=== PATIENT | male | born 1955 | race Two or more races ===

== ENCOUNTER 2024-09-19 09:37 | Inpatient (IN) | payer MEDICARE, MEDICAID ==
[~2024-09-19] VITALS: Ht 152.4 cm; Wt 96.0 kg
--- NOTE | 2024-09-19 10:33 | ED.PDOC ---
SOB-HPI HPI Comments HPI: Poor Historian. 69 y.o male presents to the ED for a chief complaint of SOB associated with nausea, chills, cough and phlegm that presented 10 days ago. Patient was seen by urgent care recently, had an X ray done which resulted clear and was prescribed doxycycline, prednisone and Benzonatate. Patient finished medication yesterday but has persistent and worsening SOB, cough and phlegm. Patient reports chills have subsided. Patient mentions and son were sick with similar symptoms this past week but have recovered. Patient has been using Ibuprofen but none within the past 24 hours. He denies any chest pain, fever, nausea, vomiting. Vitals BP: 132/28 HR: 91 Temp:98.3 F SPO2: 95% room air RR:15 Past medical history: DM, HTN Past surgical history: No allergies reported REVIEW OF SYSTEMS: CONSTITUTIONAL: Denies acute: fever, diaphoresis, chills, generalized weakness. HEAD: Denies acute: headache, photophobia Eyes: Denies acute: Double vision, vision loss, eye pain, eye discharge. EARS: Denies acute: tinnitus, hearing loss, ear discharge, ear pain, THROAT: Denies acute: sore throat, swelling, difficulty swallowing , pain with swallowing, change in voice. NECK: Denies acute: neck pain, neck swelling, stiff neck. HEART: Denies acute : chest pain, palpitations, LUNGS: Denies acute: wheezing, hemoptysis ABDOMEN: Denies acute: abdominal pain, Nausea, Vomiting, diarrhea, melena , hematemesis, hematochezia SKIN: Denies acute: rash, redness, lesions, itchiness. EXTREMITIES: Denies acute: calf pain, numbness, tingling, weakness, denies pain in extremity. Denies acute: Low back pain. Neuro: Denies acute: focal neurological deficit, motor or sensory focal neurological deficit, tremors, seizure like activity, confusion, dizziness, change in mental status, loss of bowel or bladder function, cauda equina like symptoms. : Denies acute: dysuria, hematuria, flank pain, increase in urinary frequency. PSYCH: Denies acute: hallucination, suicidal ideation, homicidal ideation. PHYSICAL EXAM: General: no acute distress, awake and alert. Head: normocephalic, atraumatic. Neck: supple, trachea is midline, no swelling. Throat: Normal phonation. Eyes:, no erythema, no purulent discharge, no proptosis, no icterus. Heart: regular rate, regular rhythm, no significant murmur appreciated. Lungs: no apparent respiratory distress, Able to speak in full sentences. No wheezing, no rhonchi, no crackles. No stridors Clear to auscultation bilaterally. Abdomen: non tender to palpation, non distended, soft, no guarding, no rebound, + bowel sounds. Neuro: Awake, Alert, oriented to name, self, situation, follows commands GCS=15. Speech is normal. Skin: no petechia, no purpura, no cyanosis, non-pale, not jaundice. Lower extremities: --no - Pitting edema no deformity, no focal swelling, no calf TTP. Makes eye contact. moves all four extremities. Face: no apparent facial droop. Ambulating in the ED independently. ED COURSE: Chief Complaint: Flu like Time Seen by MD: 10:21 Reviewed notes: Nurses Notes, Allergies Information Source: Patient Mode of Arrival: Ambulatory Severity: Moderate Past Medical History PAST MEDICAL HISTORY: DM, HTN Family History Family History: Reviewed,noncontributory to illness Social History Smoker: Quit Greater Than 1 Year Alcohol: Denies ETOH Use Drugs: Denies Drug Use Lives In: Home Was a procedure done? Was a procedure done?: No Differential Dx Differential Diagnosis: Bronchitis, Pneumonia, Respiratory Distress, URI, Other (DDx include ACS, unstable angina, anxiety, PE, pneumothroax, neoplasm, cardiac ischemia, COPD, asthma, CHF, pleural effusion, tobacco abuse, pneumonia, hypoxia, hypercapnia, anemia., infection/sepsis., pulmonary edema. Asthma, Cardiac tamponade, infection.) X-Ray, Labs, Meds, VS Vital Signs Date Time Temp Pulse Resp B/P (MAP) Pulse Ox O2 Delivery O2 Flow Rate FiO2 09/19/24 18:42 69 16 124/82 (96) 94 09/19/24 16:29 22 96 Room Air* 0 21 09/19/24 16:23 97.4 84 16 121/79 (93) 95 97.4 09/19/24 14:18 76 18 117/73 (88) 94 09/19/24 12:56 80 22 139/80 (99) 92 09/19/24 10:38 82 22 92 Room Air* 0 21 09/19/24 10:38 98.6 82 22 131/58 (82) 92 98.6 09/19/24 10:01 15 95 Room Air* 0 21 09/19/24 10:01 98.3 91 15 132/78 (96) 95 Lab Test 09/19/24 17:30 09/19/24 14:07 09/19/24 11:53 09/19/24 11:29 Range/Units POC Glucose 182 H 70-106 mg/dl Troponin I High Sensitivity 6 7 </=54 ng/L Blood Gas Specimen Type Arterial Blood Gas Sample Site Right radial Blood Gas Patient Temperature 37.0 Arterial Blood Date Drawn [id number] Arterial Blood pH 7.429 7.350-7.450 Arterial Blood Partial Pressure CO2 35.8 35.0-48.0 mmHg Arterial Blood Partial Pressure O2 59.9 L 83.0-108.0 mmHg Arterial Blood HCO3 23.2 21.0-28.0 mmol/L Arterial Blood Oxygen Saturation 90.5 L 94.0-98.0 % Arterial Blood Base Excess -0.5 -2.0-3.0 mmol/L Arterial Blood Oxyhemoglobin 89.2 L 94.0-98.0 % Arterial Blood Carboxyhemoglobin 0.8 0.5-1.5 % Arterial Blood Methemoglobin 0.6 0.0-1.5 % Rito Test Yes Blood Gas Total Hemoglobin 17.90 H 13.5-17.5 g/dL Blood Gas Liter Flow 0.00 Blood Gas Modality Room air FiO2 % 21.0 Test 09/19/24 10:33 09/19/24 10:28 Range/Units Influenza Type A Antigen Negative Negative Influenza Type B Antigen Negative Negative SARS-CoV-2 Antigen (Rapid) Negative NEGATIVE White Blood Count 9.5 4.4-10.8 10^3/uL Red Blood Count 5.53 4.5-5.90 10^6/uL Hemoglobin 17.5 13.5-17.5 g/dL Hematocrit 51.0 41.0-53.0 % Mean Corpuscular Volume 92.1 80.0-100.0 fL Mean Corpuscular Hemoglobin 31.6 28.0-32.0 pg Mean Corpuscular Hemoglobin Concent 34.3 32.0-36.0 g/dL Red Cell Distribution Width 13.3 11.8-14.3 % Platelet Count 278 140-450 10^3/uL Mean Platelet Volume 8.3 6.9-10.8 fL Neutrophils (%) (Auto) 37.0-80.0 % Lymphocytes (%) (Auto) 10.0-50.0 % Monocytes (%) (Auto) 0.0-12.0 % Basophils (%) (Auto) 0.0-2.0 % Neutrophils # (Auto) 1.6-8.6 10 ^3/uL Lymphocytes # (Auto) 0.4-5.4 10 ^3/uL Monocytes # (Auto) 0-1.3 10 ^3/uL Differential Total Cells Counted 100.0 100 Neutrophils % (Manual) 62 37.0-80.0 Band Neutrophils % (Manual) 4 Lymphocytes % (Manual) 22 10.0-50.0 Monocytes % (Manual) 7 0-12 Eosinophils % (Manual) 3 0-7 Basophils % (Manual) 0 0.0-2.0 Metamyelocytes % (manual) 2 Myelocytes % (Manual) 0 Promyelocytes % (Manual) 0 Blast Cells % (Manual) 0 Reactive Lymphocytes 0 Platelet Estimate Adequate Sodium Level 136 136-145 mmol/L Potassium Level 4.3 3.5-5.1 mmol/L Chloride Level 101 98-107 mmol/L Carbon Dioxide Level 27 20-31 mmol/L Anion Gap 8 5-15 Blood Urea Nitrogen 14 9-23 mg/dL Creatinine 0.82 0.700-1.30 mg/dL Glomerular Filtration Rate Calc 95 >90 mL/min BUN/Creatinine Ratio 17.1 10.0-20.0 Serum Glucose 133 H 74-106 mg/dL Calcium Level 10.2 8.7-10.4 mg/dL Total Bilirubin 0.9 0.2-1.0 mg/dL Aspartate Amino Transferase (AST) 29 13-40 U/L Alanine Aminotransferase (ALT) 69 H 7-40 U/L Alkaline Phosphatase 75 46-116 U/L Troponin I High Sensitivity 6 </=54 ng/L B-Type Natriuretic Peptide 4.36 0-100 pg/mL Total Protein 7.4 5.7-8.2 g/dL Albumin 4.9 H 3.2-4.8 g/dL Current Medications Medications (Trade) Dose Ordered Sig/Shilpa Route Start Time Stop Time Status Last Admin Albuterol (Ventolin Medneb) 2.5 mg Q4HPRN PRN NEB 09/19/24 16:15 09/19/24 16:28 Ipratropium [place] (Atrovent Medneb) 0.5 mg Q4HPRN PRN NEB 09/19/24 16:15 09/19/24 16:28 Diagnostic Test (Pha) (Accu-Chek Comfort Curve T) 1 strip ACHS 09/19/24 17:00 09/19/24 17:31 Insulin Human Regular (InsuLIN R) ACHS SC 09/19/24 17:00 09/19/24 17:33 Sodium Chloride 1,000 ml @ 60 mls/hr [id number] IV 09/19/24 16:15 09/19/24 17:27 Methylprednisolone Sodium Succinate (Solu Medrol) 80 mg ONCE ONCE IV 09/19/24 16:15 09/19/24 16:18 DC 09/19/24 17:27 [place] [id number] Ph: [phone] DIAGNOSTIC IMAGING Diagnostic Imaging Report : [id number] Signed PATIENT: YORDAN FRIEND FACCT: [id number] UNIT: [id number] : 1955 LOC: ER ROOM / BED: / AGE / SEX: 69 / M ADM STATUS: REG ER SERVICE 1031 ORDERING PHYSICIAN: SAAD HINDS DO PROCEDURE(s): CXRP - CHEST PORTABLE REASON: sob ORDER NUMBER(s): [id number], ACCESSION NUMBER(s): [id number] EXAM: XY CHEST PORTABLE Indication: sob Technique: Single frontal view of the chest was obtained Comparison: None FINDINGS: Lines and Tubes: None Lungs: No focal consolidation. Pleura: No effusion. No pneumothorax. Cardiomediastinal contours: Unremarkable Bones: No acute osseous abnormality. IMPRESSION: No acute cardiopulmonary disease. ATED BY: PAUL MARIE MD DICTATED DATE/TIME: 09/19/24 104 SIGNED BY: PAUL MARIE MD SIGNED DATE/TIME: 09/19/241041 CC: Time of 1ST Reevaluation: 10:32 Reevaluation 1ST: Unchanged Patient Education/Counseling: Diagnosis, Treatment Family Education/Counseling: No Family Present Comments Patient presented with the above HPI.---respiratory complaints---workup was initiated. patient was found with the above mentioned diagnosis. the following medications were ordered: please refer to order lists of meds and tests obtained by myself Dr. Hinds. Patient ED course and VS have been stabilized. Patient has been reassessed in the ED and remained in a stable condition. Pertinent incidental findings were discussed with the patient and/or family. Patient/family voices understanding and is agreeable with plan. Patient has been observed in the ED adequate length of time to insure improvement/stability. Escalation of care considered: Consideration of escalation to observation or admission Patient's ABG was obtained at room and shows some hypoxemia. Patient was ADMITTED to the medicine team for further evaluation and treatment of their presentation. All the reports of any imaging studies that were ordered by myself were reviewed by myself. Departure 1 Departure Time of Disposition: 12:48 Impression: Primary Impression: Flu-like symptoms Additional Impression: Hypoxemia Disposition: ADMITTED INPATIENT Admit to: Tele Condition: Guarded Discharged With: Self Critical Care Note Critical Care Time?: No I personally scribed for SAAD HINDS DO ([email or web address]) on 09/19/24 at 10:33. Electronically submitted by Crystal Gonzalez ([facility]). I personally scribed for SAAD HINDS DO ([email or web address]) on 09/19/24 at 10:45. Electronically submitted by Crystal Gonzalez ([facility]). I personally scribed for SAAD HINDS DO ([email or web address]) on 09/19/24 at 14:43. Electronically submitted by Crystal Gonzalez ([facility]). SAAD HINDS DO Sep 19, 2024 10:33
[2024-09-19 10:38] VITALS: PULSE 82; RESP 22; O2SAT 92
--- NOTE | 2024-09-19 10:43 | DVH ---
EXAM: XY CHEST PORTABLE Indication: sob Technique: Single frontal view of the chest was obtained Comparison: None FINDINGS: Lines and Tubes: None Lungs: No focal consolidation. Pleura: No effusion. No pneumothorax. Cardiomediastinal contours: Unremarkable Bones: No acute osseous abnormality. IMPRESSION: No acute cardiopulmonary disease.
[2024-09-19 11:23] LABS: COVID19 ANTIGEN SOFIA FIA NEGATIVE (NEGATIVE)
[2024-09-19 11:24] LABS: Rapid Influenza A Negative (Negative); Rapid Influenza B Negative (Negative)
[2024-09-19 11:28] LABS: Hemoglobin 17.5 g/dL (13.5-17.5); Mean Corpuscular Hemoglobin 31.6 pg (28.0-32.0); Mean Corpuscular Hgb Conc. 34.3 g/dL (32.0-36.0); Mean Corpuscular Volume 92.1 fL (80.0-100.0); Platelet Count (auto) 278 10^3/uL (140-450); Red Blood Cells 5.53 10^6/uL (4.5-5.90); Red Cell Distribution Width 13.3 % (11.8-14.3); White Blood Cell 9.5 10^3/uL (4.4-10.8)
[2024-09-19 11:34] LABS: Basophils % (manual) 0 (0.0-2.0); Blast Cells 0; Myelocytes % 0; Promyelocytes % 0; Reactive Lymphocytes 0
[2024-09-19 11:49] LABS: Alkaline Phosphatase 75 U/L (46-116); Anion Gap 8 (5-15); Aspartate Aminotransferase 29 U/L (13-40); BUN/Creatinine Ratio 17.1 (10.0-20.0); Blood Urea Nitrogen 14 mg/dL (9-23); Calcium 10.2 mg/dL (8.7-10.4); Carbon Dioxide 27 mmol/L (20-31); Chloride 101 mmol/L (98-107); Potassium 4.3 mmol/L (3.5-5.1); Sodium 136 mmol/L (136-145); Total Protein 7.4 g/dL (5.7-8.2)
[2024-09-19 11:50] LABS: Alanine Aminotransferase 69 U/L (7-40); Albumin 4.9 g/dL (3.2-4.8); Glucose 133 mg/dL (74-106)
[2024-09-19 12:02] LABS: Base Excess -0.5 mmol/L (-2.0-3.0)
[2024-09-19 12:13] LABS: Bilirubin, Total 0.9 mg/dL (0.2-1.0)
[2024-09-19 12:47] LABS: Band Neutrophils % (manual) 4; Eosinophils % (manual) 3 (0-7); Lymphocytes % (manual) 22 (10.0-50.0); Metamyelocytes % 2; Monocytes % (manual) 7 (0-12); Platelet Estimate Adequate
[2024-09-19] MEDS ORDERED: DOCUSATE SOD 100 MG CAP PO PRN (16:15)
[2024-09-19] MEDS ORDERED: DEXTROSE (50%) 50ML SYRG IV PRN (16:15)
[2024-09-19] MEDS ORDERED: ONDANSETRON HCL 4 MG/2 ML VIAL IV PRN (16:15)
[2024-09-19] MEDS ORDERED: ACETAMINOPHEN 325 MG TAB PO PRN (16:15)
[2024-09-19] MEDS ORDERED: HYDROcodone-ACET 5/325MG TAB PO PRN (16:15)
[2024-09-19] MEDS: IPRATROPIUM BROM 0.5 MG/2.5ML INH SOL NEB PRN (16:28)
[2024-09-19] MEDS: ALBUTEROL SULF 2.5 MG/0.5ML(0.5%) NEB SOLN NEB PRN (16:28)
[2024-09-19] MEDS: methylPREDNISolone SOD SUCC 125 MG/2 ML VL IV ONE (17:27)
[2024-09-19] MEDS: SODIUM CHLORIDE 0.9% 1,000 ML IV SCH (17:27)
[2024-09-19] MEDS: ACCU-CHEK COMFORT CURVE STRIP VI SCH (17:31)
[2024-09-19] MEDS: InsuLIN REG 1unit/0.01ml Soln (100units/ml) SC SCH (17:33)
[2024-09-19 18:20] VITALS: O2SAT 96
--- NOTE | 2024-09-19 19:50 | DVHHP2 ---
History of Present Illness Reason for Visit: Acute respiratory distress History of Present Illness The patient is a 69-year-old male with past medical history of diabetes mellitus and hypertension who presented to [facility] ED with complaint of shortness of breaths. Patient reports he has been experiencing cough with phlegm for the past 10 days, nausea, chills, getting worse today that prompted this visit. Patient was seen and evaluated in the ED, laboratory data shows WBC 9.5, platelets 278, sodium 136, potassium 4.3, BUN 14, creatinine 0.82, GFR 95, glucose 133, AST 29, ALT 69, troponin 7, albumin 4.9, BNP 4.36, blood pressure 117/73, heart rate 76, temperature 98.6 F, O2 saturation 95% on oxygen. Chest x-ray show no acute cardiopulmonary disease. Please see medication orders section in the computer. On my assessment, patient denied chest pain, no headache, no dizziness, currently on oxygen, no nausea, no vomiting, no fever, no chills. Patient was admitted for further evaluation and medical management. Past Medical History DM, HTN Past Surgical History Denies all surgeries Family History Reviewed, noncontributory to the management of this case. Past Social History The patient lives at home, quit smoking greater than 1 year, denies alcohol or illicit drugs abuse. Review of Systems Constitutional: Yes: Weakness; No: Fever, Chills, Sweats, Malaise, Other Eyes: No: Pain, Vision change, Conjunctivae inflammation, Eyelid inflammation, Other, Redness ENT: No: Ear pain, Ear discharge, Nose pain, Nose discharge, Nose congestion, Mouth pain, Mouth swelling, Throat pain, Throat swelling, Other Respiratory: Cough, Shortness of breath; No: Dry, SOB with excertion, Wheezing, Hemoptysis, Pleuritic Pain, Sputum, Wheezing, Other Cardiovascular: No: Chest Pain, Palpitations, Orthopnea, Paroxysmal Noc. Dyspnea, Edema, Lt Headedness, Other Gastrointestinal: No: Nausea, Vomiting, Abdominal Pain, Diarrhea, Constipation, Melena, Hematochezia, Other Genitourinary: No Dysuria, No Frequency, No Incontinence, No Hematuria, No Retention, No Other Musculoskeletal: No: other, neck pain, shoulder pain, arm pain, back pain, hand pain, leg pain, foot pain Skin: No: Rash, Lesions, Jaundice, Bruising, Other Neurological: No: Weakness, Numbness, Incoordination, Change in speech, Confusion, Seizures, Other Allergies: Coded Allergies: NO KNOWN ALLERGIES (Unverified , 09/19/24) Medications Current Medications Medications Dose Ordered Sig/Shilpa Route Start Time Stop Time Status Last Admin Dose Admin Albuterol 2.5 mg Q4HPRN PRN NEB 09/19/24 16:15 09/19/24 16:28 2.5 MG Ipratropium [place] 0.5 mg Q4HPRN PRN NEB 09/19/24 16:15 09/19/24 16:28 0.5 MG Diagnostic Test (Pha) 1 strip ACHS 09/19/24 17:00 09/19/24 17:31 1 STRIP Insulin Human Regular ACHS SC 09/19/24 17:00 09/19/24 17:33 3 UNITS Dextrose 50 ml UD PRN IV 09/19/24 16:15 Sodium Chloride 1,000 ml @ 60 mls/hr [id number] IV 09/19/24 16:15 09/19/24 17:27 60 MLS/HR Acetaminophen/ Hydrocodone Bitart 1 tab Q4HP PRN PO 09/19/24 16:15 Ondansetron HCl 4 mg Q4HP PRN IV 09/19/24 16:15 Docusate Sodium 100 mg BIDPRN PRN PO 09/19/24 16:15 Acetaminophen 650 mg Q6HP PRN PO 09/19/24 16:15 Methylprednisolone Sodium Succinate 40 mg BID IV 09/19/24 22:00 Exam Vital Signs Vital Signs Date Time Temp Pulse Resp B/P (MAP) Pulse Ox O2 Delivery O2 Flow Rate FiO2 09/19/24 18:42 69 16 124/82 (96) 94 09/19/24 16:29 Room Air* 0 21 09/19/24 16:23 97.4 97.4 General Appearance: Alert, Oriented X3, Cooperative, No acute distress HEENT: Atraumatic, PERRLA, EOMI, Mucous membr. moist/pink Respiratory: Clear to auscultation, Normal air movement Cardiovascular: Regular rate, Normal S1, Normal S2, No murmurs Abdominal: Normal bowel sounds, Soft, No tenderness, No hepatospenomegaly, No masses Extremities: No clubbing, No cyanosis, No edema, Normal pulses, No tenderness/swelling Skin: No rashes, No breakdown, No significant lesion Neuro: Normal speech, Normal tone, Sensation intact, Cranial nerves 3-12 NL, Reflexes 2+, Other (Generalized weakness) Psych/Mental Status: Mental status NL, Mood NL Labs/Xrays Labs Test 09/19/24 17:30 09/19/24 14:07 09/19/24 11:53 09/19/24 10:33 Range/Units POC Glucose 182 H 70-106 mg/dl Troponin I High Sensitivity 6 </=54 ng/L Blood Gas Specimen Type Arterial Blood Gas Sample Site Right radial Blood Gas Patient Temperature 37.0 Arterial Blood Date Drawn [id number] Arterial Blood pH 7.429 7.350-7.450 Arterial Blood Partial Pressure CO2 35.8 35.0-48.0 mmHg Arterial Blood Partial Pressure O2 59.9 L 83.0-108.0 mmHg Arterial Blood HCO3 23.2 21.0-28.0 mmol/L Arterial Blood Oxygen Saturation 90.5 L 94.0-98.0 % Arterial Blood Base Excess -0.5 -2.0-3.0 mmol/L Arterial Blood Oxyhemoglobin 89.2 L 94.0-98.0 % Arterial Blood Carboxyhemoglobin 0.8 0.5-1.5 % Arterial Blood Methemoglobin 0.6 0.0-1.5 % Rito Test Yes Blood Gas Total Hemoglobin 17.90 H 13.5-17.5 g/dL Blood Gas Liter Flow 0.00 Blood Gas Modality Room air FiO2 % 21.0 Influenza Type A Antigen Negative Negative Influenza Type B Antigen Negative Negative SARS-CoV-2 Antigen (Rapid) Negative NEGATIVE Test 09/19/24 10:28 Range/Units White Blood Count 9.5 4.4-10.8 10^3/uL Red Blood Count 5.53 4.5-5.90 10^6/uL Hemoglobin 17.5 13.5-17.5 g/dL Hematocrit 51.0 41.0-53.0 % Mean Corpuscular Volume 92.1 80.0-100.0 fL Mean Corpuscular Hemoglobin 31.6 28.0-32.0 pg Mean Corpuscular Hemoglobin Concent 34.3 32.0-36.0 g/dL Red Cell Distribution Width 13.3 11.8-14.3 % Platelet Count 278 140-450 10^3/uL Mean Platelet Volume 8.3 6.9-10.8 fL Neutrophils (%) (Auto) 37.0-80.0 % Lymphocytes (%) (Auto) 10.0-50.0 % Monocytes (%) (Auto) 0.0-12.0 % Basophils (%) (Auto) 0.0-2.0 % Neutrophils # (Auto) 1.6-8.6 10 ^3/uL Lymphocytes # (Auto) 0.4-5.4 10 ^3/uL Monocytes # (Auto) 0-1.3 10 ^3/uL Differential Total Cells Counted 100.0 100 Neutrophils % (Manual) 62 37.0-80.0 Band Neutrophils % (Manual) 4 Lymphocytes % (Manual) 22 10.0-50.0 Monocytes % (Manual) 7 0-12 Eosinophils % (Manual) 3 0-7 Basophils % (Manual) 0 0.0-2.0 Metamyelocytes % (manual) 2 Myelocytes % (Manual) 0 Promyelocytes % (Manual) 0 Blast Cells % (Manual) 0 Reactive Lymphocytes 0 Platelet Estimate Adequate Sodium Level 136 136-145 mmol/L Potassium Level 4.3 3.5-5.1 mmol/L Chloride Level 101 98-107 mmol/L Carbon Dioxide Level 27 20-31 mmol/L Anion Gap 8 5-15 Blood Urea Nitrogen 14 9-23 mg/dL Creatinine 0.82 0.700-1.30 mg/dL Glomerular Filtration Rate Calc 95 >90 mL/min BUN/Creatinine Ratio 17.1 10.0-20.0 Serum Glucose 133 H 74-106 mg/dL Calcium Level 10.2 8.7-10.4 mg/dL Total Bilirubin 0.9 0.2-1.0 mg/dL Aspartate Amino Transferase (AST) 29 13-40 U/L Alanine Aminotransferase (ALT) 69 H 7-40 U/L Alkaline Phosphatase 75 46-116 U/L B-Type Natriuretic Peptide 4.36 0-100 pg/mL Total Protein 7.4 5.7-8.2 g/dL Albumin 4.9 H 3.2-4.8 g/dL PATIENT: YORDAN FRIEND FACCT: [id number] UNIT: [id number] : 1955 LOC: ER ROOM / BED: / AGE / SEX: 69 / M ADM STATUS: REG ER SERVICE 1031 ORDERING PHYSICIAN: SAAD HINDS DO PROCEDURE(s): CXRP - CHEST PORTABLE REASON: sob ORDER NUMBER(s): [id number], ACCESSION NUMBER(s): [id number] EXAM: XY CHEST PORTABLE Indication: sob Technique: Single frontal view of the chest was obtained Comparison: None FINDINGS: Lines and Tubes: None Lungs: No focal consolidation. Pleura: No effusion. No pneumothorax. Cardiomediastinal contours: Unremarkable Bones: No acute osseous abnormality. IMPRESSION: No acute cardiopulmonary disease. Assessment/Plan Assessment/Plan Acute respiratory distress Generalized weakness Plan 1. Admit to telemetry unit 2. Breathing treatment 3. Pain control management 4. Management of fluids and electrolytes 5. Consultation for hospitalist 6. Diagnostic tests chest x-ray 7. DVT prophylaxis-on SCDs 8. Repeat labs CBC, CMP in a.m. 9. Continue with current medical management 10. Treatment plan discussed with patient and RN. Patient verbalized un derstanding. Plan discussed with: Patient, Other (RN) My Orders Orders - MO PEREZ DNP Procedure Category Date Status Time Albuterol Medneb PHA 09/19/24 In Process (Ventolin Medneb) 16:15 Ipratropium Medneb PHA 09/19/24 In Process (Atrovent Medneb) 16:15 Glucose Blood PHA 09/19/24 In Process (Accu-Chek Comfort 17:00 Insulin R (Human) PHA 09/19/24 In Process (Insulin R) 17:00 Dextrose 50% Syringe PHA 09/19/24 In Process 16:15 Allergies BRIAN 09/19/24 In Process 16:04 Code Status CODE 09/19/24 Transmitted 16:04 Sodium Chloride 0.9% PHA 09/19/24 In Process 16:15 Oxygen Per Hour RT 09/19/24 Transmitted 16:04 Hydrocodone-Acet PHA 09/19/24 In Process 5/325mg Tab ([place] 16:15 Ondansetron Hcl PHA 09/19/24 In Process (Zofran) 16:15 Docusate Sodium PHA 09/19/24 In Process Capsule (Colace 16:15 Complete Blood Count LAB 09/20/24 Verified 04:00 Comprehensive LAB 09/20/24 Verified Metabolic Panel 04:00 Condition: Serious BRIAN 09/19/24 In Process 16:04 Acetaminophen Tablet PHA 09/19/24 In Process (Tylenol Tablet) 16:15 Bedrest With Bathroom BRIAN 09/19/24 In Process Privileg 16:04 Sequential BRIAN 09/19/24 In Process Compression Device Consistent DIET 09/19/24 Transmitted Carb(Ccho)Diabetes Dinner Methylprednisolone PHA 09/19/24 In Process Sod Succ (Solu Medrol 22:00 Admit ADMIT 09/19/24 Verified 19:48 Nitroglycerin PHA 09/19/24 Verified Sublingual (Ntrostat 20:00 Morphine Sulfate PHA 09/19/24 Verified Injection 20:00 Notify Md Of Changes [facility] 09/19/24 Verified From Base 19:48 Group Leader Wafer Polishing For [facility] 09/19/24 Verified 24 Hours 19:48 Emergency Dysrhythmia [facility] 09/19/24 Verified Protocol 19:48 Rhythm Strips Once [facility] 09/19/24 Verified Every Shift 19:48 Oxygen By Nasal RT 09/19/24 Verified Cannula 19:48 Problem List: (1) Acute respiratory distress (2) Generalized weakness Date of Service: Sep 19, 2024 Billing Provider: MO PEREZ DNP Common Visit Codes: [id number] INP/OBS CARE (HIGH) MO PEREZ DNP Sep 19, 2024 19:50
[2024-09-19] MEDS ORDERED: NITROGLYCERIN 0.4 MG SL TAB SL PRN (20:00)
[2024-09-19] MEDS ORDERED: MORPHINE SULFATE INJ 2 MG/ml SYRG IV PRN (20:00)
[2024-09-19 20:50] VITALS: BP 124/82; PULSE 69; RESP 16; TEMP 97.4; O2SAT 96
[2024-09-20] VITALS (11 sets, daily range): BP systolic 133–163; BP diastolic 78–92; PULSE 78–108; RESP 15–18; TEMP 97–97.9; O2SAT 91–100
[2024-09-20] MEDS ORDERED: LISI-283 PO (00:29)
[2024-09-20] MEDS ORDERED: METF-370 PO (00:29)
[2024-09-20] MEDS ORDERED: SEMA14TA2 PO (00:29)
[2024-09-20] MEDS ORDERED: MELO15TA29 PO (00:29)
[2024-09-20] MEDS ORDERED: AMLO1TAB22 PO (00:29)
[2024-09-20] MEDS: methylPREDNISolone SOD SUCC 40 MG/ML VL IV SCH (00:56)
[2024-09-20 06:06] LABS: Hematocrit 50.6 % (41.0-53.0); Hemoglobin 17.2 g/dL (13.5-17.5); Mean Corpuscular Hemoglobin 31.2 pg (28.0-32.0); Mean Corpuscular Volume 91.8 fL (80.0-100.0); Platelet Count (auto) 255 10^3/uL (140-450); Red Blood Cells 5.51 10^6/uL (4.5-5.90); Red Cell Distribution Width 13.4 % (11.8-14.3); White Blood Cell 7.7 10^3/uL (4.4-10.8)
[2024-09-20 06:14] LABS: Alkaline Phosphatase 72 U/L (46-116); Anion Gap 12 (5-15); Aspartate Aminotransferase 23 U/L (13-40); BUN/Creatinine Ratio 24.6 (10.0-20.0); Blood Urea Nitrogen 16 mg/dL (9-23); Calcium 10.2 mg/dL (8.7-10.4); Carbon Dioxide 23 mmol/L (20-31); Chloride 99 mmol/L (98-107)
[2024-09-20 06:15] LABS: Bilirubin, Total 0.9 mg/dL (0.2-1.0); Total Protein 7.4 g/dL (5.7-8.2)
[2024-09-20 06:16] LABS: Band Neutrophils % (manual) 0; Basophils % (manual) 0 (0.0-2.0); Blast Cells 0; Eosinophils % (manual) 0 (0-7); Metamyelocytes % 0; Monocytes % (manual) 0 (0-12); Myelocytes % 0; Promyelocytes % 0
[2024-09-20 06:18] LABS: Alanine Aminotransferase 67 U/L (7-40); Albumin 4.9 g/dL (3.2-4.8); Glucose 179 mg/dL (74-106); Sodium 134 mmol/L (136-145)
[2024-09-20 06:58] LABS: Lymphocytes % (manual) 28 (10.0-50.0); Platelet Estimate Adequate; Reactive Lymphocytes 1
[2024-09-20] MEDS: LISINOPRIL 20 MG TAB PO SCH (10:00)
[2024-09-20] MEDS: amLODIPine BESYLATE 5 MG TAB PO SCH (10:00)
[2024-09-20] MEDS ORDERED: ACETAMINOPHEN 500 MG TAB or CAP PO PRN (14:45)
[2024-09-20] MEDS ORDERED: ONDANSETRON HCL 4 MG/2 ML VIAL IV PRN (14:45)
[2024-09-20] MEDS ORDERED: HYDROcodone-ACET 5/325MG TAB PO PRN (14:45)
[2024-09-20] MEDS ORDERED: MORPHINE SULFATE INJ 2 MG/ml SYRG IV PRN (14:45)
--- NOTE | 2024-09-20 15:07 | DVHPN2 ---
Subjective Patient continues to report shortness of breath, sputum production. Reviewed: Care Plan, H&P, Labs, Medications, Previous Orders Changes from previous H/P or p: No Changes General: Per HPI Eyes: No Pain, No Vision change, No Conjunctivae inflammation, No Eyelid inflammation, No Other, No Redness ENT: No Ear pain, No Ear discharge, No Nose pain, No Nose discharge, No Nose congestion, No Mouth pain, No Mouth swelling, No Throat pain, No Throat swelling, No Other Cardiovascular: No Chest Pain, No Palpitations, No Orthopnea, No Paroxysmal Noc. Dyspnea, No Edema, No Lt Headedness, No Other Respiratory: Cough; No Dry; Shortness of breath; No SOB with excertion, No Wheezing, No Hemoptysis, No Pleuritic Pain, No Sputum, No Other Gastrointestinal: No Nausea, No Vomiting, No Abdominal Pain, No Diarrhea, No Constipation, No Melena, No Hematochezia, No Other Genitourinary: No Dysuria, No Frequency, No Incontinence, No Hematuria, No Retention, No Other Musculoskeletal: No other, No neck pain, No shoulder pain, No arm pain, No back pain, No hand pain, No leg pain, No foot pain Skin: No Rash, No Lesions, No Jaundice, No Bruising, No Other Objective Vitals Vital Signs Date Time Temp Pulse Resp B/P (MAP) Pulse Ox O2 Delivery O2 Flow Rate FiO2 09/20/24 13:00 97.9 100 16 143/89 (107) 93 97.9 09/20/24 06:41 Nasal Cannula* 2 28 Intake/Output Intake and Output 09/20/24 07:00 Intake Total 390 ml Balance 390 ml Intake Oral 300 ml IV Total 90 ml # Voids 2 General Appearance: Alert, Oriented X3, Cooperative, No acute distress HEENT: Atraumatic, PERRLA Lungs: Other (Between inspiratory rhonchi in the left lobe, wheezing in the right lobe) Cardiovascular: Normal S1, Normal S2 Abdomen: Normal bowel sounds, Soft, No tenderness Back: Flank Tenderness, Midline Tenderness Neuro: Normal gait, Normal speech Psych/Mental Status: Mood NL Medications Current Medications Medications Dose Ordered Sig/Shilpa Route Start Time Stop Time Status Last Admin Dose Admin Albuterol 2.5 mg Q4HPRN PRN NEB 09/19/24 16:15 09/20/24 06:41 2.5 MG Ipratropium [place] 0.5 mg Q4HPRN PRN NEB 09/19/24 16:15 09/20/24 06:41 0.5 MG Diagnostic Test (Pha) 1 strip ACHS 09/19/24 17:00 09/20/24 11:00 1 STRIP Insulin Human Regular ACHS SC 09/19/24 17:00 09/20/24 11:17 6 UNITS Dextrose 50 ml UD PRN IV 09/19/24 16:15 Acetaminophen/ Hydrocodone Bitart 1 tab Q4HP PRN PO 09/19/24 16:15 Ondansetron HCl 4 mg Q4HP PRN IV 09/19/24 16:15 Docusate Sodium 100 mg BIDPRN PRN PO 09/19/24 16:15 Acetaminophen 650 mg Q6HP PRN PO 09/19/24 16:15 Methylprednisolone Sodium Succinate 40 mg BID IV 09/19/24 22:00 09/20/24 11:06 40 MG Nitroglycerin 0.4 mg Q5MINP PRN SL 09/19/24 20:00 Morphine Sulfate 2 mg Q30M PRN IV 09/19/24 20:00 Piperacillin Sod/ Tazobactam Sod 100 ml @ 25 mls/hr Q8HR IV 09/20/24 22:00 UNV Azithromycin 500 mg DAILY PO 09/20/24 14:45 UNV Acetylcysteine 100 mg Q6HR NEB 09/20/24 18:00 UNV Morphine Sulfate 1 mg Q4HPRN PRN IV 09/20/24 14:45 UNV Acetaminophen/ Hydrocodone Bitart 1 tab Q6HPRN PRN PO 09/20/24 14:45 UNV Acetaminophen 500 mg Q8HP PRN PO 09/20/24 14:45 UNV Ondansetron HCl 4 mg Q6HP PRN IV 09/20/24 14:45 UNV Albuterol 2.5 mg Q6HWA NEB 09/20/24 18:00 UNV Ipratropium [place] 0.5 mg Q6HWA NEB 09/20/24 18:00 UNV Laboratory Results Laboratory Tests 09/20/24 04:21 Chemistry Test 09/20/24 04:21 Albumin 4.9 g/dL (3.2-4.8) H Calcium Level 10.2 mg/dL (8.7-10.4) Total Protein 7.4 g/dL (5.7-8.2) Coagulation Test 09/19/24 19:36 D-Dimer, Quantitative 0.21 mg/L FEU (0.0-0.49) LFT Test 09/20/24 04:21 Alanine Aminotransferase (ALT) 67 U/L (7-40) H Alkaline Phosphatase 72 U/L (46-116) Aspartate Amino Transferase (AST) 23 U/L (13-40) Total Bilirubin 0.9 mg/dL (0.2-1.0) Labs and/or images reviewed: Labs reviewed by me, Image(s) reviewed by me Assessment/Plan Assessment/Plan Impression: -probable community-acquired pneumonia, Gram-positive/Gram-negative etiology with failure of oral antibiotic therapy -obesity -primary hypertension -diabetes mellitus Plan: -CT scan of the chest -add antibiotic therapy: Zosyn, azithromycin -continue bronchodilators -add mucolytics -continue Solu-Medrol -regular insulin sliding scale -repeat labs in a.m. Total time spent with patient discussing and formulating plan of care: 35 minutes. This medical document was created using an electronic medical record system with [employer] dictation system. Although this document has been carefully reviewed, there may still be some phonetic and typographical errors. These areas are purely typographical due to imperfections of the software programs, and do not reflect any compromise in the patient's medical care. 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 LOG STACKER OPERATOR Procedure Category Date Status Time Piperacillin-Tazob PHA 09/20/24 Logged 3.375gm (Zosyn 3.375g 22:00 Azithromycin Tablet PHA 09/20/24 Logged (Zithromax Tablet) 14:45 Acetylcysteine PHA 09/20/24 Logged Inhalation 10% 18:00 Morphine Sulfate PHA 09/20/24 Logged Injection 14:45 Hydrocodone-Acet PHA 09/20/24 Logged 5/325mg Tab ([place] 14:45 Acetaminophen Tab Or PHA 09/20/24 Logged Cap (Tylenol Tablet 14:45 Ondansetron Hcl PHA 09/20/24 Logged (Zofran) 14:45 Albuterol Medneb PHA 09/20/24 Logged (Ventolin Medneb) 18:00 Ipratropium Medneb PHA 09/20/24 Logged (Atrovent Medneb) 18:[address] 09/20/24 Logged 14:39 Date of Service: Sep 20, 2024 Billing Provider: RACHNA PERDUE NP Common Visit Codes: [id number] INP/OBS CARE(HIGH) RACHNA PERDUE NP Sep 20, 2024 15:07
--- NOTE | 2024-09-20 15:30 | DVH ---
Procedure: CT CHEST WITHOUT CONTRAST Reason for study/Clinical History: pna, interstitial lung disease Comparison Study: None available at time of dictation. Exam Date: 09/20/2024 03:00 PM TECHNIQUE: Multidetector CT of the chest was performed from the lung apices to the upper abdomen with out the use of intravenous contract. Axial, coronal and sagittal multiplanar reformats were performed . Radiation Dose Information: CT Dose: CTDI volume is 22.48 mGy. Dose-length product is 818.71 mGy*cm The dose indicators for CT are the volume Computed Tomography (CT) Dose Index (CTDIvol) and the Dose Length Product (DLP), and are measured in units of mGy and mGy-cm, respectively. These indicators are not patient dose, but values generated from the CT scanner acquisition factors. The report includes radiation exposure data for exposures received during this examination. FINDINGS: Lower neck: Normal thyroid. Lungs: No focal consolidation, pleural effusion or pneumothorax. Heart/Vascular Structures: Normal heart size. Coronary artery calcifications No pericardial effusion. Lymph Nodes: No adenopathy Pleura: No pleural effusion or significant pneumothorax. Musculoskeletal: No acute osseous abnormality. Soft tissues: Normal. Upper abdomen: Limited portions of the upper abdomen are unremarkable. IMPRESSION: 1. No acute intrathoracic abnormality. Radiation optimization: All CT scans at this facility use at least one of these dose optimization helder hniques: automated exposure control mA and/or kV adjustment per patient size (includes targeted exam s where dose is matched to clinical indication) or iterative reconstruction.
[2024-09-20] MEDS: AZITHROMYCIN 250 MG TAB PO SCH (16:58)
[2024-09-20] MEDS: PIPERACILLIN-TAZOB 3.375GM 100 ML IV ONE (16:58)
[2024-09-20] MEDS: ALBUTEROL SULF 2.5 MG/0.5ML(0.5%) NEB SOLN NEB SCH (19:01)
[2024-09-20] MEDS: IPRATROPIUM BROM 0.5 MG/2.5ML INH SOL NEB SCH (19:01)
[2024-09-20] MEDS: ACETYLCYSTEINE 10 %(100MG/ML) SOL 4ML NEB SCH (19:01)
[2024-09-20] MEDS: PIPERACILLIN-TAZOB 3.375GM 100 ML IV SCH (21:31)
[2024-09-21] VITALS (11 sets, daily range): BP systolic 123–141; BP diastolic 62–77; PULSE 80–100; RESP 15–19; TEMP 97.3–97.8; O2SAT 91–98
[2024-09-21] MEDS ORDERED: BUDE1AER16 IN (15:55)
--- NOTE | 2024-09-21 15:59 | DVHDS2 ---
Discharge Summary Date of Admission Sep 19, 2024 at 19:48 Date of Discharge: Sep 21, 2024 Admitting Diagnosis Acute respiratory failure Labs/Diagnostic Data: Laboratory Results Test 09/21/24 11:16 09/20/24 04:21 09/19/24 19:36 09/19/24 14:07 POC Glucose 290 mg/dl (70-106) White Blood Count 7.7 10^3/uL (4.4-10.8) Red Blood Count 5.51 10^6/uL (4.5-5.90) Hemoglobin 17.2 g/dL (13.5-17.5) Hematocrit 50.6 % (41.0-53.0) Mean Corpuscular Volume 91.8 fL (80.0-100.0) Mean Corpuscular Hemoglobin 31.2 pg (28.0-32.0) Mean Corpuscular Hemoglobin Concent 34.0 g/dL (32.0-36.0) Red Cell Distribution Width 13.4 % (11.8-14.3) Platelet Count 255 10^3/uL (140-450) Mean Platelet Volume 8.5 fL (6.9-10.8) Neutrophils (%) (Auto) % (37.0-80.0) Lymphocytes (%) (Auto) % (10.0-50.0) Monocytes (%) (Auto) % (0.0-12.0) Basophils (%) (Auto) % (0.0-2.0) Neutrophils # (Auto) 10 ^3/uL (1.6-8.6) Lymphocytes # (Auto) 10 ^3/uL (0.4-5.4) Monocytes # (Auto) 10 ^3/uL (0-1.3) Differential Total Cells Counted 100.0 (100) Neutrophils % (Manual) 71 (37.0-80.0) Band Neutrophils % (Manual) 0 Lymphocytes % (Manual) 28 (10.0-50.0) Monocytes % (Manual) 0 (0-12) Eosinophils % (Manual) 0 (0-7) Basophils % (Manual) 0 (0.0-2.0) Metamyelocytes % (manual) 0 Myelocytes % (Manual) 0 Promyelocytes % (Manual) 0 Blast Cells % (Manual) 0 Reactive Lymphocytes 1 Platelet Estimate Adequate Sodium Level 134 mmol/L (136-145) Potassium Level 4.0 mmol/L (3.5-5.1) Chloride Level 99 mmol/L (98-107) Carbon Dioxide Level 23 mmol/L (20-31) Anion Gap 12 (5-15) Blood Urea Nitrogen 16 mg/dL (9-23) Creatinine 0.65 mg/dL (0.700-1.30) Glomerular Filtration Rate Calc 101 mL/min (>90) BUN/Creatinine Ratio 24.6 (10.0-20.0) Serum Glucose 179 mg/dL (74-106) Calcium Level 10.2 mg/dL (8.7-10.4) Total Bilirubin 0.9 mg/dL (0.2-1.0) Aspartate Amino Transferase (AST) 23 U/L (13-40) Alanine Aminotransferase (ALT) 67 U/L (7-40) Alkaline Phosphatase 72 U/L (46-116) Total Protein 7.4 g/dL (5.7-8.2) Albumin 4.9 g/dL (3.2-4.8) D-Dimer, Quantitative 0.21 mg/L FEU (0.0-0.49) Troponin I High Sensitivity 6 ng/L (</=54) Test 09/19/24 11:53 09/19/24 10:33 09/19/24 10:28 Blood Gas Specimen Type Arterial Blood Gas Sample Site Right radial Blood Gas Patient Temperature 37.0 Arterial Blood Date Drawn [id number] Arterial Blood pH 7.429 (7.350-7.450) Arterial Blood Partial Pressure CO2 35.8 mmHg (35.0-48.0) Arterial Blood Partial Pressure O2 59.9 mmHg (83.0-108.0) Arterial Blood HCO3 23.2 mmol/L (21.0-28.0) Arterial Blood Oxygen Saturation 90.5 % (94.0-98.0) Arterial Blood Base Excess -0.5 mmol/L (-2.0-3.0) Arterial Blood Oxyhemoglobin 89.2 % (94.0-98.0) Arterial Blood Carboxyhemoglobin 0.8 % (0.5-1.5) Arterial Blood Methemoglobin 0.6 % (0.0-1.5) Rito Test Yes Blood Gas Total Hemoglobin 17.90 g/dL (13.5-17.5) Blood Gas Liter Flow 0.00 Blood Gas Modality Room air FiO2 % 21.0 Influenza Type A Antigen Negative (Negative) Influenza Type B Antigen Negative (Negative) SARS-CoV-2 Antigen (Rapid) Negative (NEGATIVE) B-Type Natriuretic Peptide 4.36 pg/mL (0-100) Other Laboratory Tests 09/20/24 04:21 Brief Hx & Hospital Course: History of Present Illness The patient is a 69-year-old male with past medical history of diabetes mellitus and hypertension who presented to [facility] ED with complaint of shortness of breaths. Patient reports he has been experiencing cough with phlegm for the past 10 days, nausea, chills, getting worse today that prompted this visit. Patient was seen and evaluated in the ED, laboratory data shows WBC 9.5, platelets 278, sodium 136, potassium 4.3, BUN 14, creatinine 0.82, GFR 95, glucose 133, AST 29, ALT 69, troponin 7, albumin 4.9, BNP 4.36, blood pressure 117/73, heart rate 76, temperature 98.6 F, O2 saturation 95% on oxygen. Chest x-ray show no acute cardiopulmonary disease. Please see medication orders section in the computer. On my assessment, patient denied chest pain, no headache, no dizziness, currently on oxygen, no nausea, no vomiting, no fever, no chills. Patient was admitted for further evaluation and medical management. Course of hospitalization: Initial impression of the patient reveals tachypnea, bilateral wheezing with rhonchi. Patient was CT scan of the chest which did not show any acute cardiopulmonary pathology. Patient's respiratory status improved with bronchodilators, Solu-Medrol, inhaled corticosteroids. Long discussion was made with the patient regarding the findings of the CT scan. Given there was no leukocytosis or documentation of patient being febrile, antibiotic therapy was be stopped. Patient will be discharged home and instructed to follow up with his PCP. He was recommended to have follow up with a digital solution architect for pulmonary function test. He will be continued with Laba, ics as an outpatient given his increase used at home with Azul. Patient was agreeable with discharge plan. All questions answered. Physical examination General: Alert and Oriented x3. No acute distress. Well-nourished. Obese Eyes: EOMI. Anicteric. HENT: Moist mucous membranes. Lungs: Expiratory wheeze Cardiovascular: Regular rate and rhythm. No murmur. No JVD. Abdomen: Soft, non-tender and non-distended. No palpable masses. Extremities: No edema. Non-tender. Skin: No rashes or lesions. Warm. Neurologic: No focal neurological deficits. CN II-XII grossly intact, but not individually tested. Psychiatric: Cooperative. Appropriate mood and affect. Total time spent with patient discussing and formulating plan of care: 35 minutes. This medical document was created using an electronic medical record system with [employer] dictation system. Although this document has been carefully reviewed, there may still be some phonetic and typographical errors. These areas are purely typographical due to imperfections of the software programs, and do not reflect any compromise in the patient's medical care. Condition at Discharge: Fair Final Diagnosis/Problems List Acute Respiratory Failure Secondary diagnosis: -probable community-acquired pneumonia, Gram-positive/Gram-negative etiology with failure of oral antibiotic therapy , ruled out -obesity -primary hypertension -diabetes mellitus Discharge Disposition: Home Discharge Instruct/Medications Diet: Consistent carbohydrate, Cardiac 2g Na,low cholest Activity: No Restrictions, As Tolerated Follow Up/Referral: PCP in 1-2 weeks Medications: Symbicort II puffs bid x 30 days. Rinse mouth after each use 36 Discharge Statement: "Patient was advised to return to the ER or call 911 if any headaches, dizziness, shortness of breath, chest pain, abdominal pain, bleeding, fevers, or worsening of medical condition. Patient was counseled about treatment plan, medications, possible side effects, patientverbalized understanding. All questions were answered to the best of my ability. This discharge took greater then 30 minutes in planning, reviewing documentation, counseling the patient, and discussing with other team members." ASSESSMENT ASSESSMENT Assessment Acute Respiratory Failure Date of Service: Sep 21, 2024 Billing Provider: RACHNA PERDUE NP Common Visit Codes: 62725-MUN/OBS DISCH DAY >30min RACHNA PERDUE NP Sep 21, 2024 15:59
== END 2024-09-21 18:00 | disposition home or self-care (01) | DRG 177 ==
LOC: ER 09:37 → OVERFLOW 19:48 → TELE-EAST 09-20 22:51
PROVIDERS: ADMIT Nurse Practitioner Acute Care; ATTEND Nurse Practitioner Acute Care
DX: J15.69 Pneumonia due to other Gram-negative bacteria (principal); J96.01 Acute respiratory failure with hypoxia; J15.9 Unspecified bacterial pneumonia; Z20.822 Contact with and (suspected) exposure to COVID-19; E11.9 Type 2 diabetes mellitus without complications; I10 Essential (primary) hypertension; Z87.891 Personal history of nicotine dependence
CPT/HCPCS: 36415; 36600; 71045; 71250; 80053; 82805; 82962; 83880; 84484; 85007; 85027; 85379; 87426; 87804; 94640; 96374; G0378; J1815; J2543

== ENCOUNTER 2025-03-05 14:31 | Emergency (ER) | payer MEDICARE, MEDICAID ==
[~2025-03-05] VITALS: Ht 165.1 cm; Wt 90.9 kg
[~2025-03-05 14:31] MED LIST: AMLO1TAB22 PO; BUDE1AER16 IN; LISI-283 PO; MELO15TA29 PO; METF-370 PO; SEMA14TA2 PO
[2025-03-05 14:33] VITALS: BP 151/70; RESP 18; TEMP 99.3; O2SAT 95
[2025-03-05 15:22] VITALS: PULSE 87
--- NOTE | 2025-03-05 15:22 | ED.PDOC ---
History of Present Illness HPI Comments 69-year-old male came to the ER stating that he has been having cough since last night unable to control his cough. Patient does have mild palpitations especially when he coughs. Cough associated with a fever last night. History of hypertension diabetes. Denies any other symptoms. Chief Complaint: Flu like Time Seen by MD: 14:38 Reviewed Notes: Nurses Notes, Medications, Allergies Allergies: Coded Allergies: NO KNOWN ALLERGIES (Unverified , 09/19/24) Home Meds Active Scripts Budesonide-Formoterol Fumarate (Breyna 160-4.5 Mcg/Act) 1 Aer Aer, 1 AER IN BID for 30 Days, #1 AER Prov:RACHNA PERDUE FIELD ASSISTANT 09/21/24 Reported Medications Meloxicam (Meloxicam) 15 Mg Tab, 1 TAB PO DAILY, #30 TAB 2 Refills 09/20/24 Semaglutide (Rybelsus) 14 Mg Tab, 14 MG PO, TAB 09/20/24 Metformin Hydrochloride (Metformin Hcl) 500 Mg Tab, 1 TAB PO BID, #60 TAB 3 Refills 09/20/24 Amlodipine Besylate (Amlodipine Besylate) 5 Mg Tab, 1 TAB PO DAILY, #30 TAB 5 Refills 09/20/24 Lisinopril & Hydrochlorothiazi (Lisinopril/Hydrochlorothi) 1 Tab Tab, 1 TAB PO DAILY, #30 TAB 5 Refills 09/20/24 Information Source: Patient Mode of Arrival: Wheelchair Severity: Moderate Timing: Days Duration: Since onset Past Medical History PAST MEDICAL HISTORY: DM, HTN Surgical History: Denies all surgeries Family History Family History: Reviewed,noncontributory to illness Social History Smoker: Quit Greater Than 1 Year Alcohol: Denies ETOH Use Drugs: Denies Drug Use Lives In: Home Constitutional: reports: fever; denies: chills, diaphoresis, fatigue, malaise, sweats, weakness, others EENTM: denies: blurred vision, double vision, ear bleeding, ear discharge, ear drainage, ear pain, ear ringing, eye pain, eye redness, hearing loss, mouth pain, mouth swelling, nasal discharge, nose bleeding, nose congestion, nose pain, photophobia, tearing, throat pain, throat swelling, voice changes, others Respiratory: reports: cough; denies: hemoptysis, orthopnea, SOB at rest, shortness of breath, SOB with excertion, stridor, wheezing, others Cardiovascular: denies: chest pain, dizzy spells, diaphoresis, Dyspnea on exertion, edema, irregular heart beat, left arm pain, lightheadedness, palpitations, PND, syncope, others Gastrointestinal: denies: abdomen distended, abdominal pain, blood streaked bowels, constipated, diarrhea, dysphagia, difficulty swallowing, hematemesis, melena, nausea, poor appetite, poor fluid intake, rectal bleeding, rectal pain, vomiting, others Genitourinary: denies: burning, dysuria, flank pain, frequency, hematuria, incontinence, penile discharge, penile sore, pain, testicle pain, testicle swelling, urgency, others Neurological: denies: dizziness, fainting, headache, left sided numbness, left sided weakness, numbness, paresthesia, pre-existing deficit, right sided numbness, right sided weakness, seizure, speech problems, tingling, tremors, weakness, others Musculoskeletal: denies: back pain, gout, joint pain, joint swelling, muscle pain, muscle stiffness, neck pain, others Integumetry: denies: bruises, change in color, change in hair/nails, dryness, laceration, lesions, lumps, rash, wounds, others Allergic/Immunocompromised: denies: Difficulty Healing, Frequent Infections, Hives, Itching, others Hematologic/Lymphatic: denies: anemia, blood clots, easy bleeding, easy bruising, swollen glands, others Endocrine: denies: excessive hunger, excessive sweating, excessive thirst, excessive urination, flushing, intolerance to cold, intolerance to heat, unexplained weight gain, unexplained weight loss, others Psychiatric: denies: anxiety, bipolar disorder, depression, hopeless, panic disorder, schizophrenia, sleepless, suicidal, others Physical Exam General Appearance: Moderate Distress HEENT: Normal ENT Inspection, Pharynx Normal, TMs Normal Neck: Full Range of Motion, Non-Tender, Normal, Normal Inspection Respiratory: Chest Non-Tender, Lungs Clear, No Accessory Muscle Use, No Respiratory Distress, Normal Breath Sounds Cardiovascular: No Edema, No JVD, No Murmur, No Gallop, Normal Peripheral Pulses, Regular Rate/Rhythm Breast Exam: Deferred Gastrointestinal: No Organomegaly, Non Tender, No Pulsatile Mass, Normal Bowel Sounds, Soft Genitalia: Deferred Pelvic: Deferred Rectal: Deferred Extremities: No calf tenderness, Normal capillary refill, Normal inspection, Normal range of motion, Non-tender, No pedal edema Musculoskeletal : Apperance: Normal Neurologic: Alert, transit specialist II-XII nml as Tested, No Motor Deficits, Normal Affect, Normal Mood, No Sensory Deficits Cerebellar Function: NOT DONE Reflexes: NOT DONE Skin: Dry, Normal Color, Warm Peripheral Pulses: 3+ Radial (R), 3+ Radial (L) Lymphatic: No Adenopathy Was a procedure done? Was a procedure done?: No EKG EKG : Pulse Rate (adult): 87 Cardiac Rhythm: PVC's Differential Dx Considerations may include: Pneumonitis. Electrolyte imbalance X-Ray, Labs, Meds, VS Vital Signs Date Time Temp Pulse Resp B/P (MAP) Pulse Ox O2 Delivery O2 Flow Rate FiO2 03/05/25 15:22 87 03/05/25 14:41 87 03/05/25 14:33 99.3 48 18 151/70 95 99.3 Lab Test 03/05/25 15:39 Range/Units White Blood Count 10.0 4.4-10.8 10^3/uL Red Blood Count 4.27 L 4.5-5.90 10^6/uL Hemoglobin 13.6 13.5-17.5 g/dL Hematocrit 39.2 L 41.0-53.0 % Mean Corpuscular Volume 91.7 80.0-100.0 fL Mean Corpuscular Hemoglobin 31.9 28.0-32.0 pg Mean Corpuscular Hemoglobin Concent 34.8 32.0-36.0 g/dL Red Cell Distribution Width 13.6 11.8-14.3 % Platelet Count 462 H 140-450 10^3/uL Mean Platelet Volume 7.5 6.9-10.8 fL Neutrophils (%) (Auto) 75.7 37.0-80.0 % Lymphocytes (%) (Auto) 11.7 10.0-50.0 % Monocytes (%) (Auto) 8.8 0.0-12.0 % Eosinophils (%) (Auto) 2.7 0.0-7.0 % Basophils (%) (Auto) 1.1 0.0-2.0 % Neutrophils # (Auto) 7.6 1.6-8.6 10 ^3/uL Lymphocytes # (Auto) 1.2 0.4-5.4 10 ^3/uL Monocytes # (Auto) 0.9 0-1.3 10 ^3/uL Eosinophils # (Auto) 0.3 0-0.8 10 ^3/uL Basophils # (Auto) 0.1 0-0.2 10 ^3/uL Nucleated Red Blood Cells 0.1 % Prothrombin Time 10.4 9.3-11.8 sec Prothrombin Time INR 0.98 0.9-1.15 Activated Partial Thromboplast Time 27.5 24.5-34.5 SEC Sodium Level 138 136-145 mmol/L Potassium Level 4.3 3.5-5.1 mmol/L Chloride Level 101 98-107 mmol/L Carbon Dioxide Level 28 20-31 mmol/L Anion Gap 9 5-15 Blood Urea Nitrogen 17 9-23 mg/dL Creatinine 0.87 0.700-1.30 mg/dL Glomerular Filtration Rate Calc 93 >90 mL/min BUN/Creatinine Ratio 19.5 10.0-20.0 Serum Glucose 120 H 74-106 mg/dL Lactic Acid Level 1.2 0.4-2.0 mmol/L Calcium Level 10.1 8.7-10.4 mg/dL Total Bilirubin 0.4 0.2-1.0 mg/dL Aspartate Amino Transferase (AST) 20 13-40 U/L Alanine Aminotransferase (ALT) 28 7-40 U/L Alkaline Phosphatase 100 46-116 U/L Total Protein 7.4 5.7-8.2 g/dL Albumin 4.8 3.2-4.8 g/dL Patient alert pain Complaining of cough fever. Vitals stable. Answering questions. Possible pneumonia. Possible pneumonitis. EKG does show PVCs. Explained to the patient. Continue monitoring. [place] [id number] Ph: [phone] DIAGNOSTIC IMAGING Diagnostic Imaging Report : [id number] Signed PATIENT: YORDAN FRIEND FACCT: [id number] UNIT: [id number] : 1955 LOC: ER ROOM / BED: / AGE / SEX: 69 / M ADM STATUS: REG ER SERVICE 1522 ORDERING PHYSICIAN: MIKE,ANNIKA MD PROCEDURE(s): CXRP - CHEST PORTABLE REASON: cough ORDER NUMBER(s): [id number], ACCESSION NUMBER(s): [id number] CHEST RADIOGRAPH Indication: cough Technique: Single frontal view of the chest was obtained Comparison: CT CHEST WITHOUT CONTRAST on DOS: 09/20/24, XY CHEST PORTABLE on DOS: 09/19/24 FINDINGS: Lines and Tubes: None Lungs: No focal consolidation. Pleura: No effusion. No pneumothorax. Cardiomediastinal contours: Unremarkable Bones: No acute osseous abnormality. IMPRESSION: 1. No acute cardiopulmonary disease. HS:Y ATED BY: BRIEN WARD Jr., DO DICTATED DATE/TIME: 03/05/251602 SIGNED BY: BRIEN WARD Jr., SIGNED DATE/TIME: 03/05/251602 CC: Time of 1ST Reevaluation: 15:20 Reevaluation 1ST: Unchanged Patient Education/Counseling: Diagnosis, Treatment, Prognosis Family Education/Counseling: No Family Present SEPSIS Sepsis Screen Date sepsis recognized/suspect: Mar 05, 2025 Time Sepsis recognized/suspect: 1433 Recent Procedure: No On Antibiotic Therapy: No Respiratory Rate >20: No Heart Rate >90: No Temp<36 C (96.8 F) or >38.3 C: No SBP <90 or MAP <65 mmHG: No New Acute Mental Status Change: No Is the patient on CPAP, BIPAP,: No Physician Orders Electrocardigram (03/05/25 14:46) Urinalysis (03/05/25 15:22) Chest Portable (03/05/25 15:22) Accucheck (03/05/25 15:22) Blood Culture (03/05/25 15:22) Notify Md If Map <65 Or Bp<90 (03/05/25 15:22) If Map<65 Start Vasopressor (03/05/25 15:22) Sepsis Reassesment After Fluid (03/05/25 16:22) Cefepime 1gm/ 50ml (Maxipime 1gm/50ml) (03/05/25 16:30) Cefepime 1gm/ 50ml (Maxipime 1gm/50ml) (03/06/25 01:00) Vital Signs Date Time Temp Pulse Resp B/P (MAP) Pulse Ox O2 Delivery O2 Flow Rate FiO2 03/05/25 15:22 87 03/05/25 14:41 87 03/05/25 14:33 99.3 48 18 151/70 95 99.3 Laboratory Tests Test 03/05/25 15:39 Lactic Acid Level 1.2 mmol/L (0.4-2.0) White Blood Count 10.0 10^3/uL (4.4-10.8) Departure 1 Departure Time of Disposition: 15:21 Impression: Primary Impression: Pneumonitis Disposition: ADMITTED INPATIENT Admit to: Med Surg Condition: Guarded Critical Care Note Critical Care Time?: No Stability Stability form required: No Heart Score Heart Score: Heart Score Response (Comments) Value History Slightly Suspicious 0 EKG Normal 0 Age >65 2 Risk Factors >3 or Hx ASHD 2 Troponin Normal limit 0 Total 4 I personally scribed for ANNIKA MCKEON MD ([email or web address]) on 03/05/25 at 16:43. Electronically submitted by Emma Amaya [email or web address]). ANNIKA MCKEON MD Mar 05, 2025 15:22
[2025-03-05] MEDS ORDERED: VANCOMYCIN 1GM/200ML PM 200 ML IV ONE (15:30)
[2025-03-05] MEDS ORDERED: LACTATED RINGER'S 1,850 ML IV ONE (15:30)
[2025-03-05 15:54] LABS: Hematocrit 39.2 % (41.0-53.0); Hemoglobin 13.6 g/dL (13.5-17.5); Mean Corpuscular Hemoglobin 31.9 pg (28.0-32.0); Mean Corpuscular Volume 91.7 fL (80.0-100.0); Nucleated Red Blood Cells % 0.1 %
--- NOTE | 2025-03-05 16:05 | DVH ---
CHEST RADIOGRAPH Indication: cough Technique: Single frontal view of the chest was obtained Comparison: CT CHEST WITHOUT CONTRAST on DOS: 09/20/24, XY CHEST PORTABLE on DOS: 09/19/24 FINDINGS: Lines and Tubes: None Lungs: No focal consolidation. Pleura: No effusion. No pneumothorax. Cardiomediastinal contours: Unremarkable Bones: No acute osseous abnormality. IMPRESSION: 1. No acute cardiopulmonary disease. HS:Y
[2025-03-05 16:09] LABS: INR 0.98 (0.9-1.15); Partial Thromboplastin Time 27.5 SEC (24.5-34.5); Prothrombin Time 10.4 sec (9.3-11.8)
[2025-03-05 16:12] LABS: Alanine Aminotransferase 28 U/L (7-40); Alkaline Phosphatase 100 U/L (46-116); Anion Gap 9 (5-15); BUN/Creatinine Ratio 19.5 (10.0-20.0); Blood Urea Nitrogen 17 mg/dL (9-23); Calcium 10.1 mg/dL (8.7-10.4); Carbon Dioxide 28 mmol/L (20-31); Chloride 101 mmol/L (98-107); Potassium 4.3 mmol/L (3.5-5.1); Sodium 138 mmol/L (136-145); Total Protein 7.4 g/dL (5.7-8.2)
[2025-03-05 16:13] LABS: Bilirubin, Total 0.4 mg/dL (0.2-1.0)
[2025-03-05 16:19] LABS: Albumin 4.8 g/dL (3.2-4.8); Glucose 120 mg/dL (74-106)
[2025-03-05] MEDS ORDERED: CEFEPIME 1GM/ 50ML 50 ML IV ONE (16:30)
[2025-03-06] MEDS ORDERED: CEFEPIME 1GM/ 50ML 50 ML IV SCH (01:00)
--- NOTE | 2025-03-07 06:36 | ECG ---
[facility] Test Date: 2025-03-05 Test Time: 14:41:55 Pat Name: YORDAN FRIEND Department: ER Room: Gender: M Public Address Servicer: FRED : 1955 Requested By: ANNIKA MCKEON Order Number: [id number] Reading MD: Measurements Intervals [place] Rate: 87 P: 47 OR: 161 QRS: 48 QRSD: 82 T: -30 QT: 360 QTc: 433 Interpretive Statements Sinus rhythm Ventricular premature complex Borderline repolarization abnormality Please click the below link to view image of tracing.
== END 2025-03-05 19:46 | disposition left against medical advice (07) ==
LOC: ER 14:31
DX: J98.4 Other disorders of lung (principal); I10 Essential (primary) hypertension; E11.9 Type 2 diabetes mellitus without complications; Z87.891 Personal history of nicotine dependence; Z79.899 Other long term (current) drug therapy; Z79.1 Long term (current) use of non-steroidal anti-inflammatories (NSAID); Z79.84 Long term (current) use of oral hypoglycemic drugs
CPT/HCPCS: 36415; 71045; 80053; 83605; 85025; 85610; 85730; 87040; 93005